=== PATIENT | female | born 1945 | race Caucasian/White ===

== ENCOUNTER → 2016-02-23 | Outpatient (CLI) | payer OTHER | LOC: MMPC 11:11 | PROVIDERS: ATTEND Internal Medicine | DX: H61.21 Impacted cerumen, right ear (principal) | CPT/HCPCS: 99212; G0463 ==

== ENCOUNTER → 2016-02-25 | Outpatient (CLI) | payer OTHER | LOC: MMPC 11:11 | PROVIDERS: ATTEND Internal Medicine | DX: H61.21 Impacted cerumen, right ear (principal) | CPT/HCPCS: 69209 ×2; G0463 ==